=== PATIENT | male | born 1965 | race African-American/Black ===

== ENCOUNTER 2017-06-21 14:21 | Emergency (ER) | payer MEDICAID ==
[~2017-06-21] VITALS: Ht 193 cm; Wt 80.0 kg
[2017-06-21 22:25] VITALS: BP 138/86
[2017-06-21] MEDS ORDERED: PREDNISONE 20MG TABLET PO ONE (23:30)
== END 2017-06-21 23:52 | disposition home or self-care (01) ==
LOC: ER 22:22
DX: H10.89 Other conjunctivitis (principal); L30.9 Dermatitis, unspecified
CPT/HCPCS: 99283